=== PATIENT | male | born 1970 | race Caucasian/White ===

== ENCOUNTER 2019-10-19 08:07 | Emergency (ER) | payer OTHER, BC ==
[~2019-10-19] VITALS: Ht 177.8 cm; Wt 113.4 kg
[~2019-10-19 08:07] MED LIST: COLACE100 MG PO; NAPROSYN500 MG PO; OXYCODONE HCL 55 MG PO; PEPCID20 MG PO; TRAMADOL 50 MG50 MG PO; XARELTO10 MG PO
[2019-10-19] MEDS ORDERED: FLEXERIL PO (08:49)
[2019-10-19] MEDS ORDERED: NORCO 5-325 TA1 EAC1 PO (08:49)
[2019-10-19 09:35] VITALS: BP 122/78
== END 2019-10-19 09:35 | disposition home or self-care (01) ==
LOC: M.ERS 08:07
DX: S46.091A Other injury of muscle(s) and tendon(s) of the rotator cuff of right shoulder, initial encounter (principal); F17.210 Nicotine dependence, cigarettes, uncomplicated; Z88.0 Allergy status to penicillin; Z98.890 Other specified postprocedural states; X50.0XXA Overexertion from strenuous movement or load, initial encounter; Y92.89 Other specified places as the place of occurrence of the external cause; Y93.89 Activity, other specified; Y99.0 Civilian activity done for income or pay